=== PATIENT | female | born 1965 | race Caucasian/White ===

== ENCOUNTER → 2018-01-21 | Outpatient (CLI) | payer MEDICARE ==
[~2018-01-21] MED LIST: GADOBENATE DIMEGLUMINE 1 ML IV ONE
--- NOTE | 2018-01-21 18:09 | Diagnostic Imaging Report ---
EXAM: MRI of the abdomen with and without contrast. INDICATION: Abdominal pain. Concern for diverticulitis. COMPARISON: None. TECHNIQUE: Multiplanar and multisequence imaging was performed of the abdomen. T1 and T2-weighted images were obtained with and without contrast. T1-weighted in and [id number] , Dynamic, post gadolinium T1-weighted spoiled gradient echo scans. IV Contrast: 10 cc of MultiHance Oral Contrast: None. Medications: None DISCUSSION: LOWER THORAX: Unremarkable. HEPATOBILIARY: No focal hepatic lesions. 0.9 cm right hepatic lobe cyst. No biliary ductal dilation. GALLBLADDER: Not visualized. SPLEEN: No splenomegaly. PANCREAS: No focal masses or ductal dilatation. ADRENALS: No adrenal nodules KIDNEYS/URETERS: Kidneys enhance symmetrically. No hydronephrosis. No renal mass. Bilateral renal cysts, some hemorrhagic, measuring up to 1.1 cm. GI TRACT: No abnormal distention or evidence of bowel obstruction. Colonic diverticulosis with questionable mild focal perisigmoid colon fat stranding, only imaged during coronal acquisition (series 3, image 16). LYMPH NODES: No lymphadenopathy. VESSELS: Unremarkable. BONES: Unremarkable. SOFT TISSUES: Unremarkable. IMPRESSION: Colonic diverticulosis with questionable mild diverticulitis of the sigmoid colon, seen/imaged only on coronal series. This can be confirmed with abdominal/pelvic CT with contrast. Signed by: Dr. Wilfrid Concepcion MD on 01/21/2018 6:05 PM
== END ==
LOC: MRI 16:30
PROVIDERS: ATTEND Internal Medicine Gastroenterology
DX: R74.8 Abnormal levels of other serum enzymes (principal)
CPT/HCPCS: 74183